=== PATIENT | male | born 1980 ===

== ENCOUNTER 2018-03-22 22:45 | Emergency (ER) | payer SELFPAY ==
[2018-03-22] MEDS ORDERED: Morphine 4 MG/ML VIAL IVP STA (23:44)
[2018-03-22] MEDS ORDERED: Sodium Chloride 0.9% 1,000 ML IV STA ×2 (23:44)
[2018-03-23] MEDS ORDERED: Morphine 4 MG/ML VIAL ONE (00:03)
[2018-03-23 00:11] LABS: BASO % 0.4 % (0.0-2.0); EOS # 0.2 K/uL (0.0-0.7); EOS % 2.8 % (0.0-4.0); HEMOGLOBIN 15.5 g/dL (12.0-18.0); LYMPH # 1.1 K/uL (1.0-4.3); LYMPH % 13.1 % (20.0-40.0); MEAN CELL VOLUME 91.8 fl (80.0-94.0); MEAN CORPUSCULAR HEMOGLOBIN 31.6 pg (27.0-31.0); MEAN CORPUSCULAR HGB CONC 34.4 g/dL (33.0-37.0); MEAN PLATELET VOLUME 8.7 fl (7.2-11.7); MONO # 0.8 K/uL (0.0-0.8); MONO % 8.6 % (0.0-10.0); NEUT # 6.5 K/uL (1.8-7.0); NEUT % 75.1 % (50.0-75.0); RBC 4.89 Mil/uL (4.40-5.90); RED CELL DISTRIBUTION WIDTH 12.4 % (11.5-14.5); WHITE BLOOD COUNT 8.7 K/uL (4.8-10.8)
[2018-03-23 00:11] LABS: VENOUS BLOOD GAS BASE EXCESS 0.8 mmol/L (0.0-2.0); VENOUS BLOOD GAS PCO2 39 mmHg (40-60); VENOUS BLOOD GAS PO2 46 mm/Hg (30-55); VENOUS BLOOD PH 7.42 (7.32-7.43)
--- NOTE | 2018-03-23 00:15 | ED PDOC ---
HPI: Abdomen Time Seen by Provider: 03/22/18 22:55 Chief Complaint (Nursing): Abdominal Pain Chief Complaint (Provider): abdominal pain History Per: Patient History/Exam Limitations: no limitations Onset/Duration Of Symptoms: Days (x1) Location Of Pain/Discomfort: Other (lower) Associated Symptoms: Nausea. denies: Vomiting, Urinary Symptoms Additional Complaint(s): Neri Reese is a 37 year old male, with no significant past medical history, who presents to the emergency department complaining of a worsening abdominal pain onset for x1 day. Patient states pain is generalized and associated with nausea and decrease in appetite today. Patient reports pain has since focused to the lower abdomen and worst on the right side. He also reports feeling febrile and weak but did not measure his temperature. He denies any vomiting, diarrhea, rash, testicular swelling, penile discharge or other medical complaints. PMD: None provided. Past Medical History Reviewed: Historical Data, Nursing Documentation, Vital Signs Vital Signs: Last Vital Signs Temp 98.5 F 03/22/18 22:51 Pulse 80 03/22/18 22:51 Resp 18 03/22/18 22:51 BP 138/78 03/22/18 22:51 Pulse Ox 98 03/22/18 22:51 - Medical History PMH: No Chronic Diseases - Surgical History Surgical History: No Surg Hx - Family History Family History: States: Unknown Family Hx - Social History Current smoker - smoking cessation education provided: No Alcohol: None Drugs: Denies - Allergies Allergies/Adverse Reactions: Allergies Allergy/AdvReac Type Severity Reaction Status Date / Time No Known Allergies Allergy Verified 03/22/18 22:52 Review of Systems ROS Statement: Except As Marked, All Systems Reviewed And Found Negative Constitutional: Positive for: Fever (subjective), Weakness Gastrointestinal: Positive for: Nausea, Abdominal Pain. Negative for: Vomiting, Diarrhea Genitourinary Male: Negative for: Dysuria, Penile Discharge, Scrotal Pain (swelling) Skin: Negative for: Rash Physical Exam - Reviewed Nursing Documentation Reviewed: Yes Vital Signs Reviewed: Yes - Physical Exam Appears: Positive for: Uncomfortable Head Exam: Positive for: ATRAUMATIC, NORMAL INSPECTION, NORMOCEPHALIC Skin: Positive for: Normal Color, Warm, Diaphoresis Eye Exam: Positive for: Normal appearance, EOMI, PERRL Neck: Positive for: Normal, Painless ROM Cardiovascular/Chest: Positive for: Regular Rate, Rhythm. Negative for: Murmur Respiratory: Positive for: Normal Breath Sounds. Negative for: Respiratory Distress Gastrointestinal/Abdominal: Positive for: Soft, Tenderness (to palpation of LLQ), Rebound (RLQ tenderness) Back: Positive for: Normal Inspection. Negative for: L CVA Tenderness, R CVA Tenderness, Vertebral Tenderness Extremity: Positive for: Normal ROM (upper and lower extremities). Negative for: Deformity, Swelling Neurologic/Psych: Positive for: Alert, Oriented - Laboratory Results Result Diagrams: 03/22/18 23:40 03/22/18 23:40 - ECG O2 Sat by Pulse Oximetry: 98 (RA) Pulse Ox Interpretation: Normal Medical Decision Making Medical Decision Making: Time: 22:55 Initial Impression: work up for abdominal pain consistent with appendicitis. Labs, IV fluids, Tylenol for fever, morphine for pain, CT of abd/pelvis with IV contrast. Initial Plan: --Type and screen --VBG Shock Panel --Abd & Pelvis IV Contrast [CT] --EKG --CMP --Lipase --CBC w/ differential --PTT --PT --Chest portable --Morphine 4 mg IVP --Sodium Chloride 1,000 ml IV 1,000 mls/hr --Sodium Chloride 1,000 ml IV 1,000 mls/hr --Tylenol 325 mg tab 650 mg PO --Influenza A B --Urinalysis --Reevaluation 00:00 Patient to be signed out to Dr. Gibson pending labs and CT. ----- Scribe Attestation: Documented by Juan R Courtney, acting as a scribe for Phuong Amador MD. Provider Scribe Attestation: All medical record entries made by the Scribe were at my direction and personally dictated by me. I have reviewed the chart and agree that the record accurately reflects my personal performance of the history, physical exam, medical decision making, and the department course for this patient. I have also personally directed, reviewed, and agree with the discharge instructions and disposition. Disposition - Disposition Disposition: Transfer of Care Disposition Time: 00:00 Condition: STABLE Forms: [email or web address] ([place]) Patient Signed Over To: Fausto Gibson
[2018-03-23 00:16] LABS: ALB/GLOB RATIO 1.1 (1.0-2.1); ALBUMIN 4.1 g/dL (3.5-5.0); ALT/SGPT 75 U/L (21-72); AST/SGOT 44 U/L (17-59); BLOOD UREA NITROGEN 14 mg/dl (9-20); CALCIUM 9.2 mg/dL (8.4-10.2); GFR NON-AFRICAN AMERICAN > 60; LIPASE 50 U/L (23-300)
[2018-03-23] MEDS ORDERED: Sodium Chloride 0.9% 50 ML IV ONE (00:18)
[2018-03-23] MEDS ORDERED: Iohexol 300 100 ML IJ ONE (00:18)
[2018-03-23 00:24] LABS: INR 1.1
[2018-03-23 00:26] LABS: PARTIAL THROMBOPLASTIN TIME 33.7 Seconds (25.6-37.1)
--- NOTE | 2018-03-23 00:26 | ED PDOC ---
- Laboratory Results Result Diagrams: 03/22/18 23:40 03/22/18 23:40 - ECG O2 Sat by Pulse Oximetry: 98 (RA) Medical Decision Making Medical Decision Makin:00 -Patient endorsed to provider by Dr. Amador, pending CT and labs. 01:48 Abdomen/Pelvis CT COMMENTS: Fluid filled bowels. The liver is of uniform attenuation without mass or defect. There is no intra or extrahepatic biliary ductal dilatation. The spleen is normal. The gallbladder is within normal limits. The pancreas is of normal contour and attenuation characteristics. There is no evidence of adrenal mass. Both kidneys demonstrate prompt and equal nephrograms. The kidneys are normal in size, shape and configuration. There is no evidence of renal or ureteral mass. No renal or ureteral calculi are identified. There is no hydroureter or hydronephrosis. No evidence for appendicitis. There is no bowel wall thickening. No evidence for small or large bowel obstruction. There is no evidence of abdominal ascites or lymphadenopathy. There is no evidence of intrinsic or extrinsic bladder mass. There is no pelvic ascites or lymphadenopathy. Images of the lung bases show no evidence of pleural or parenchymal mass. There are no pleural effusions. The bony structures are free of lytic or blastic lesions. IMPRESSION: Fluid filled bowels, nonspecific finding. No evidence of acute abdominal or pelvic pathology. 03:13 -Patient reports improvement of symptoms and is medically stable for discharge. Diagnosis of abdominal pain Scribe Attestation: Documented by Juan R Courtney, acting as a scribe for Fausto Gibson MD. Provider Scribe Attestation: All medical record entries made by the Scribe were at my direction and personally dictated by me. I have reviewed the chart and agree that the record accurately reflects my personal performance of the history, physical exam, medical decision making, and the department course for this patient. I have also personally directed, reviewed, and agree with the discharge instructions and disposition. Disposition - Clinical Impression Clinical Impression: Abdominal pain - POA Present On Arrival: None - Disposition Disposition: Routine/Home Disposition Time: 03:13 Condition: STABLE Prescriptions: Dicyclomine [Bentyl] 20 mg PO Q12 PRN #20 tab PRN Reason: abdominal pain Ondansetron ODT [Zofran ODT] 4 mg PO Q6 PRN #8 odt PRN Reason: Nausea/Vomiting Instructions: Acute Abdomen (Belly Pain) Forms: [employer] [facility] ([place]an)
[2018-03-23 01:27] LABS: URINE BACTERIA RARE (<OCC); URINE BILIRUBIN NEGATIVE (NEGATIVE); URINE BLOOD NEGATIVE (NEGATIVE); URINE CLARITY CLEAR (Clear); URINE COLOR STRAW (YELLOW); URINE GLUCOSE (UA) NEG (Normal); URINE LEUKOCYTE ESTERASE NEG Leu/uL (Negative); URINE PROTEIN NEGATIVE (NEGATIVE); URINE UROBILINOGEN 0.2-1.0 mg/dL (0.2-1.0)
[2018-03-23 03:31] VITALS: BP 109/54; PULSE 77; RESP 12; TEMP 98.7
--- NOTE | 2018-03-23 10:57 | CARD ---
APPROVED REPORT Date of service: 03/23/2018 EKG Measurement Heart [id number] ID [id number] <Conclusion> Normal sinus rhythm Normal Electrocardiogram
--- NOTE | 2018-03-23 11:52 | CT ---
Date of service: 03/23/2018 PROCEDURE: CT Abdomen and Pelvis with contrast HISTORY: Rule out appendicitis COMPARISON: None available TECHNIQUE: Contrast dose: 90 mL Omnipaque 300 Radiation dose: Total exam DLP = 412.82 mGy-cm. This CT exam was performed using one or more of the following dose reduction techniques: Automated exposure control, adjustment of the mA and/or kV according to patient size, and/or use of iterative reconstruction technique. FINDINGS: LOWER THORAX: Unremarkable. LIVER: Diffusely diminished attenuation of the liver consistent with fatty infiltration. There is mild focal fatty sparing adjacent to the gallbladder fossa. There is no hepatic mass. The contour is smooth. There is no biliary ductal dilatation. GALLBLADDER AND BILE DUCTS: Unremarkable. PANCREAS: Unremarkable. No gross lesion or ductal dilatation. SPLEEN: Unremarkable. ADRENALS: Unremarkable. No mass. KIDNEYS AND URETERS: Unremarkable. No hydronephrosis. No solid mass. VASCULATURE: Unremarkable. No aortic aneurysm. No aortic atherosclerotic calcification or mural plaque present. BOWEL: No bowel obstruction. There is circumferential mural thickening of multiple loops of jejunum in the left abdomen consistent with a nonspecific enteritis. No other abnormal bowel loops are identified. There are scattered colonic diverticula noted without evidence of diverticulitis. APPENDIX: Not positively identified. No secondary findings to suggest acute appendicitis. PERITONEUM: Unremarkable. No free fluid. No free air. LYMPH NODES: No retroperitoneal or pelvic lymphadenopathy. There are innumerable shotty subcentimeter lymph nodes within the small bowel mesenteric. This is a nonspecific finding and may be related to the nonspecific enteritis described above. BLADDER: Unremarkable. REPRODUCTIVE: Normal prostate BONES: No acute fracture. OTHER FINDINGS: None. IMPRESSION: Nonspecific enteritis. Small bowel mesenteric lymphadenopathy of uncertain significance, possibly reactive associated with the nonspecific enteritis noted above. Diffuse fatty infiltration of the liver. No other abnormality identified. The preliminary findings for this examination were reported by [facility] at 1:48 a.m. on 03/23/2018. There is discordance of this report with the preliminary findings. The nonspecific enteritis and small bowel mesenteric lymphadenopathy was not described in the preliminary report of this examination.
--- NOTE | 2018-03-23 12:18 | RAD ---
Date of service: 03/22/2018 HISTORY: possible admission COMPARISON: No prior. FINDINGS: LUNGS: No active pulmonary disease. PLEURA: No significant pleural effusion identified, no pneumothorax apparent. CARDIOVASCULAR: No atherosclerotic calcification present Normal. OSSEOUS STRUCTURES: No significant abnormalities. VISUALIZED UPPER ABDOMEN: Normal. OTHER FINDINGS: None. IMPRESSION: No active disease.
[2018-03-23 21:40] VITALS: O2SAT 98
== END 2018-03-23 03:39 | disposition home or self-care (01) ==
LOC: H.ER 22:45
DX: R10.9 Unspecified abdominal pain (principal)
CPT/HCPCS: 71045; 74177; 80053; 81003; 82803; 83690; 85025; 85610; 85730; 86850; 86900; 87804; 93005; 96361; 96374; 99283; J2270; J7030; Q9967

== ENCOUNTER 2018-03-23 22:15 | Emergency (ER) | payer SELFPAY ==
[2018-03-23] MEDS ORDERED: Sodium Chloride 0.9% 1,000 ML IV STA (22:55)
[2018-03-23 23:51] LABS: BASO % 0.6 % (0.0-2.0); EOS # 0.3 K/uL (0.0-0.7); EOS % 5.1 % (0.0-4.0); LYMPH # 1.2 K/uL (1.0-4.3); MEAN CELL VOLUME 93.9 fl (80.0-94.0); MEAN CORPUSCULAR HEMOGLOBIN 32.2 pg (27.0-31.0); MEAN CORPUSCULAR HGB CONC 34.3 g/dL (33.0-37.0); MEAN PLATELET VOLUME 8.8 fl (7.2-11.7); MONO # 0.7 K/uL (0.0-0.8); MONO % 12.5 % (0.0-10.0); NEUT # 3.2 K/uL (1.8-7.0); NEUT % 59.8 % (50.0-75.0); NRBC % 0.1 % (0.0-0.0); RBC 4.65 Mil/uL (4.40-5.90); RED CELL DISTRIBUTION WIDTH 12.3 % (11.5-14.5); WHITE BLOOD COUNT 5.3 K/uL (4.8-10.8)
[2018-03-23 23:55] LABS: ALB/GLOB RATIO 1.2 (1.0-2.1); ALBUMIN 4.4 g/dL (3.5-5.0); ALT/SGPT 76 U/L (21-72); AST/SGOT 45 U/L (17-59); BLOOD UREA NITROGEN 14 mg/dl (9-20); CALCIUM 9.6 mg/dL (8.4-10.2); GFR NON-AFRICAN AMERICAN > 60; LIPASE 66 U/L (23-300)
--- NOTE | 2018-03-24 00:20 | ED PDOC ---
HPI: Abdomen Time Seen by Provider: 03/23/18 22:54 Chief Complaint (Nursing): Abdominal Pain Chief Complaint (Provider): Abdominal Pain History Per: Patient History/Exam Limitations: no limitations Additional Complaint(s): 37 y/o male with no significant past medical history presents to the ED complaining of abdominal pain. Patient reports that he was diagnosed with nonspecific abdominal pain earlier today on 03/23/18 and was discharged; he had a complete workup which revealed no acute findings. Patient reports that he was later called by ED PA doing call backs and informed him that he had enteritis which was not in the initial CT report. Patient understood that he was supposed to come back if he had abdominal pain but as per PA he was actually just told dietary advice. Past Medical History Reviewed: Historical Data, Nursing Documentation, Vital Signs Vital Signs: Last Vital Signs Temp 98.8 F 03/23/18 22:34 Pulse 72 03/23/18 22:34 Resp 18 03/23/18 22:34 BP 128/78 03/23/18 22:34 Pulse Ox 100 03/23/18 22:34 - Surgical History Surgical History: No Surg Hx - Family History Family History: States: Unknown Family Hx - Home Medications Home Medications: Ambulatory Orders Medication Instructions Recorded Dicyclomine [Bentyl] 20 mg PO Q12 PRN #20 tab 03/23/18 Ondansetron ODT [Zofran ODT] 4 mg PO Q6 PRN #8 odt 03/23/18 - Allergies Allergies/Adverse Reactions: Allergies Allergy/AdvReac Type Severity Reaction Status Date / Time No Known Allergies Allergy Verified 03/22/18 22:52 Review of Systems ROS Statement: Except As Marked, All Systems Reviewed And Found Negative Gastrointestinal: Positive for: Abdominal Pain Physical Exam - Reviewed Nursing Documentation Reviewed: Yes Vital Signs Reviewed: Yes - Physical Exam Appears: Positive for: Non-toxic, No Acute Distress Head Exam: Positive for: ATRAUMATIC, NORMOCEPHALIC Skin: Positive for: Normal Color, Warm, Dry Eye Exam: Positive for: Normal appearance, EOMI, PERRL Neck: Positive for: Normal, Painless ROM, Supple Cardiovascular/Chest: Positive for: Regular Rate, Rhythm. Negative for: Murmur Respiratory: Positive for: Normal Breath Sounds. Negative for: Respiratory Distress Gastrointestinal/Abdominal: Positive for: Tenderness (mild LLQ) Extremity: Positive for: Normal ROM. Negative for: Pedal Edema, Deformity Neurologic/Psych: Positive for: Alert, Oriented. Negative for: Motor/Sensory Deficits - Laboratory Results Result Diagrams: 03/23/18 23:30 03/23/18 23:30 - ECG O2 Sat by Pulse Oximetry: 100 (RA) Pulse Ox Interpretation: Normal Medical Decision Making Medical Decision Making: Time: 22:55 Initial Impression: 37 y/o male with abdominal pain in setting of established enteritis on CT Initial Plan: * CMP * Lipase * ED urine * CBC w/ diff * IV Fluids * UA 00:30 Labs reviewed no clinically significant abnormalities. Patient is stable for discharge home. Provider reinforced benign findings of labs and CT to patient. Diagnosis is gastroenteritis. Scribe Attestation: Documented by Deyvi Harris acting as a scribe for Fausto Gibson MD. Provider Scribe Attestation: All medical record entries made by the Scribe were at my direction and personally dictated by me. I have reviewed the chart and agree that the record accurately reflects my personal performance of the history, physical exam, medical decision making, and the department course for this patient. I have also personally directed, reviewed, and agree with the discharge instructions and disposition. Disposition - Clinical Impression Clinical Impression: Gastroenteritis - Patient ED Disposition Is Patient to be Admitted: No - Disposition Disposition: Routine/Home Disposition Time: 00:30 Condition: STABLE Additional Instructions: RAUDEL BERTRAND, thank you for letting us take care of you today. Your provider was Fausto Gibson MD and you were treated for ABD PAIN. The emergency medical care you received today was directed at your acute symptoms. If you were prescribed any medication, please fill it and take as directed. It may take several days for your symptoms to resolve. Return to the Emergency Department if your symptoms worsen, do not improve, or if you have any other problems. Please contact your doctor or call one of the physicians/clinics you have been referred to that are listed on the Patient Visit Information form that is included in your discharge packet. Bring any paperwork you were given at discharge with you along with any medications you are taking to your follow up visit. Our treatment cannot replace ongoing medical care by a primary care provider outside of the emergency department. Thank you for allowing the [facility] team to be part of your care today. If you had an X-Ray or CT scan: A Radiologist will review the ED reading if any change in treatment is needed we will contact you. If you had a blood, urine, or wound culture: It will take several days for the results, if any change in treatment is needed we will contact you. If you had an STI test: It will take 48 hours for the results. Please call after 1 week if you have not heard back. Instructions: Gastroenteritis (ED) Forms: [employer] ([place]zeri) Print Language: KAZAKH
[2018-03-24 01:16] VITALS: BP 124/66; PULSE 77; RESP 16; TEMP 97.9
[2018-03-24 01:36] LABS: SQUAMOUS EPITHIAL < 1 /hpf (0-5); URINE BILIRUBIN NEGATIVE (NEGATIVE); URINE BLOOD NEGATIVE (NEGATIVE); URINE CLARITY CLEAR (Clear); URINE COLOR YELLOW (YELLOW); URINE GLUCOSE (UA) NEG (Normal); URINE LEUKOCYTE ESTERASE NEG Leu/uL (Negative); URINE PROTEIN NEGATIVE (NEGATIVE); URINE UROBILINOGEN 0.2-1.0 mg/dL (0.2-1.0)
[2018-03-24 06:53] VITALS: O2SAT 100
== END 2018-03-24 00:35 | disposition home or self-care (01) ==
LOC: H.ER 22:15
DX: K52.9 Noninfective gastroenteritis and colitis, unspecified (principal)
CPT/HCPCS: 80053; 81003; 83690; 85025; 99283; J7030

== ENCOUNTER 2018-04-10 15:08 | Emergency (ER) | payer OTHER ==
[2018-04-10] MEDS ORDERED: Sodium Chloride 0.9% 1,000 ML IV STA (15:52)
--- NOTE | 2018-04-10 15:55 | ED PDOC ---
HPI: Abdomen Time Seen by Provider: 04/10/18 15:41 Chief Complaint (Nursing): Abdominal Pain Chief Complaint (Provider): Abdominal Pain History Per: Patient History/Exam Limitations: no limitations Onset/Duration Of Symptoms: Hrs (x12) Current Symptoms Are (Timing): Still Present Location Of Pain/Discomfort: Epigastric Associated Symptoms: Chills, Nausea. denies: Fever, Vomiting, Diarrhea Additional Complaint(s): 37 y/o male with no significant PMHx presents to the ED for evaluation of abdominal pain, onset 12 hours ago. Patient states pain is located in the epigastric area and is associated with nausea and chills. Patient reports pain is constant and has been gradually worsening. Patient states pain worsens every time he tries to eat something. In addition, patient reports of drinking alcohol yesterday. Patient states he had a couple of beers. Otherwise, patient denies vomiting, diarrhea and fever. PMD: No Provider Past Medical History Reviewed: Historical Data, Nursing Documentation, Vital Signs Vital Signs: Last Vital Signs Temp 100.2 F H 04/10/18 15:35 Pulse 97 H 04/10/18 15:35 Resp 18 04/10/18 15:35 BP 128/85 04/10/18 15:35 Pulse Ox 100 04/10/18 15:35 - Medical History PMH: No Chronic Diseases - Surgical History Surgical History: Appendectomy, Hernia Repair - Family History Family History: States: Unknown Family Hx - Social History Alcohol: Social - Home Medications Home Medications: Ambulatory Orders Medication Instructions Recorded Dicyclomine [Bentyl] 20 mg PO Q12 PRN #20 tab 03/23/18 Ondansetron ODT [Zofran ODT] 4 mg PO Q6 PRN #8 odt 03/23/18 Famotidine [Pepcid] 20 mg PO DAILY #14 tab 04/10/18 - Allergies Allergies/Adverse Reactions: Allergies Allergy/AdvReac Type Severity Reaction Status Date / Time No Known Allergies Allergy Verified 04/10/18 15:35 Review of Systems ROS Statement: Except As Marked, All Systems Reviewed And Found Negative Constitutional: Positive for: Chills. Negative for: Fever Gastrointestinal: Positive for: Nausea, Abdominal Pain (epigastric pain). Negative for: Vomiting, Diarrhea Physical Exam - Reviewed Nursing Documentation Reviewed: Yes Vital Signs Reviewed: Yes - Physical Exam Appears: Positive for: In Acute Distress Head Exam: Positive for: ATRAUMATIC, NORMOCEPHALIC Skin: Positive for: Normal Color, Warm, Dry Eye Exam: Positive for: Normal appearance, EOMI, PERRL Neck: Positive for: Normal, Painless ROM Cardiovascular/Chest: Negative for: Bradycardia, Tachycardia Respiratory: Negative for: Accessory Muscle Use, Respiratory Distress Gastrointestinal/Abdominal: Positive for: Tenderness (epigastric tenderness) Back: Positive for: Normal Inspection. Negative for: L CVA Tenderness, R CVA Tenderness, Vertebral Tenderness Extremity: Positive for: Normal ROM. Negative for: Pedal Edema, Deformity Neurologic/Psych: Positive for: Alert, Oriented (x3). Negative for: Motor/Sensory Deficits - Laboratory Results Result Diagrams: 04/10/18 16:13 04/10/18 16:13 - ECG O2 Sat by Pulse Oximetry: 100 (RA) Pulse Ox Interpretation: Normal - Progress Re-evaluation Time: 19:01 Condition: Re-examined, Improved Medical Decision Making Medical Decision Making: Time: 1552 Impression: Abdominal Pain Differentials include but not limited to acute pancreatitis, gastritis and billiary disease Plan: -- VBG -- CT Abd/Pelvis IV Contrast ONLY -- CMP -- Lipase -- NPO Diet -- ED Urine Dipstick -- CBC iwth Differentials -- Morphine 2 mg IVP -- Sodium Chloride IV 1000 mls/hr -- Pepcid 20 mg IVP -- Zofran Inj 4 mg IV -- Blood Culture Time: 1841 CT RESULTS FINDINGS: LOWER THORAX: No focal consolidation however there appears to be some mild passive/dependent type atelectasis both posterior sulci. Small approximately 6 mm semi lunar shaped subpleural based nodule left posterior sulcus may represent postinflammatory sequela. Follow-up nonemergent CT scan of the chest could be performed for further evaluation of the remaining lung paredes. No evidence of effusions or basilar pneumothorax. Heart size within range of normal. No significant pericardial effusion. There is a small hiatal hernia. LIVER: Liver is mildly enlarged measuring over 19 cm in CC dimension. No obvious hepatic masses or collections. Moderate fatty hepatic infiltration. Portal and splenic veins are opacified. GALLBLADDER AND BILE DUCTS: The gallbladder is physiologically distended. No evidence of intraluminal gallbladder calculi. PANCREAS: Unremarkable. No gross lesion or ductal dilatation. SPLEEN: Unremarkable. ADRENALS: Unremarkable. No mass. KIDNEYS AND URETERS: Unremarkable. No hydronephrosis. No solid mass. VASCULATURE: Unremarkable. No aortic aneurysm. No aortic atherosclerotic calcification or mural plaque present. BOWEL: Evaluation of the bowel is limited due to the lack of oral contrast material. The stomach is incompletely distended which likely accounts for thick-walled appearance however on as the possibility of a gastritis given the patient's history of epigastric pain not completely excluded. Clinical correlation recommended. Interval improvement previously noted changes of nonspecific enteritis. There is a small very thin linear hyperdense focus within a loop of locally dilated proximal small bowel left upper/mid abdomen that measures 7.3 mm in length and approximately 1.7 mm in thickness. This focus is of uncertain etiology though possibility of small foreign body not excluded. No evidence of acute mechanical small bowel obstruction. Stool and air seen throughout the large bowel. There are few scattered colonic diverticula however no radiographic evidence of acute diverticulitis. APPENDIX: The appendix is not seen with complete certainty on this study however no obvious inflammatory changes right lower quadrant of the abdomen. PERITONEUM: Unremarkable. No free fluid. No free air. LYMPH NODES: Interval decrease in size previously noted multiple mesenteric lymph nodes. The the the all BLADDER: Urinary bladder is appears incompletely distended which may in part account for thick-walled appearance. Muscular hypertrophy may contribute. Correlation with urinalysis to exclude the possibility of a cystitis. REPRODUCTIVE: The prostate gland measures approximately 4.1 cm in transverse dimension. BONES: No acute fracture. OTHER FINDINGS: None. IMPRESSION: Mild hepatomegaly with fatty infiltration. There is a small very thin linear hyperdense focus within a loop of locally dilated proximal small bowel left upper/mid abdomen that measures 7.3 mm in length and approximately 1.7 mm in thickness. This focus is of uncertain etiology though possibility of small foreign body not excluded. No evidence of acute mechanical small bowel obstruction. Stool and air seen throughout the large bowel. There are few scattered colonic diverticula however no radiographic evidence of acute diverticulitis. C see above discussion for additional details findings and recommendations. Scribe Attestation: Documented by Loren Mcclure, acting as a scribe for Larisa Hollis MD. Provider Scribe Attestation: All medical record entries made by the Scribe were at my direction and personally dictated by me. I have reviewed the chart and agree that the record accurately reflects my personal performance of the history, physical exam, medical decision making, and the department course for this patient. I have also personally directed, reviewed, and agree with the discharge instructions and disposition. Disposition - Clinical Impression Clinical Impression: Fatty liver, Gastritis, Abdominal pain - Patient ED Disposition Is Patient to be Admitted: No Doctor Will See Patient In The: Office Counseled Patient/Family Regarding: Studies Performed, Diagnosis - Disposition Referrals: [facility] [Outside] Disposition: Routine/Home Disposition Time: 19:01 Condition: GOOD Additional Instructions: RAUDEL BERTRAND, thank you for letting us take care of you today. Your provider was Larisa Hollis MD and you were treated for ABD PAIN. The emergency medical care you received today was directed at your acute symptoms. If you were prescribed any medication, please fill it and take as directed. It may take several days for your symptoms to resolve. Return to the Emergency Department if your symptoms worsen, do not improve, or if you have any other problems. Please contact your doctor or call one of the physicians/clinics you have been referred to that are listed on the Patient Visit Information form that is included in your discharge packet. Bring any paperwork you were given at discharge with you along with any medications you are taking to your follow up visit. Our treatment cannot replace ongoing medical care by a primary care provider outside of the emergency department. Thank you for allowing the [facility] team to be part of your care today. If you had an X-Ray or CT scan: A Radiologist will review the ED reading if any change in treatment is needed we will contact you. If you had a blood, urine, or wound culture: It will take several days for the results, if any change in treatment is needed we will contact you. If you had an STI test: It will take 48 hours for the results. Please call after 1 week if you have not heard back. Prescriptions: Famotidine [Pepcid] 20 mg PO DAILY #14 tab Instructions: Stomach Ache and Stomach Upset Forms: [employer] (Chinese) Print Language: KYRGYZ
[2018-04-10 16:16] LABS: BASO % 0.6 % (0.0-2.0); EOS # 0.2 K/uL (0.0-0.7); EOS % 3.1 % (0.0-4.0); HEMOGLOBIN 15.4 g/dL (12.0-18.0); LYMPH # 1.5 K/uL (1.0-4.3); MEAN CELL VOLUME 94.1 fl (80.0-94.0); MEAN CORPUSCULAR HEMOGLOBIN 31.8 pg (27.0-31.0); MEAN CORPUSCULAR HGB CONC 33.8 g/dL (33.0-37.0); MEAN PLATELET VOLUME 8.2 fl (7.2-11.7); MONO # 0.8 K/uL (0.0-0.8); MONO % 10.7 % (0.0-10.0); NEUT # 5.1 K/uL (1.8-7.0); NEUT % 66.6 % (50.0-75.0); NRBC % 0.1 % (0.0-0.0); RBC 4.85 Mil/uL (4.40-5.90); RED CELL DISTRIBUTION WIDTH 12.2 % (11.5-14.5); WHITE BLOOD COUNT 7.6 K/uL (4.8-10.8)
[2018-04-10 16:20] LABS: VENOUS BLOOD GAS BASE EXCESS 2.4 mmol/L (0.0-2.0); VENOUS BLOOD GAS PCO2 42 mmHg (40-60); VENOUS BLOOD GAS PO2 35 mm/Hg (30-55); VENOUS BLOOD PH 7.42 (7.32-7.43)
[2018-04-10 17:06] LABS: ALB/GLOB RATIO 1.2 (1.0-2.1); ALBUMIN 4.6 g/dL (3.5-5.0); ALT/SGPT 52 U/L (21-72); AST/SGOT 31 U/L (17-59); BLOOD UREA NITROGEN 10 mg/dl (9-20); CALCIUM 9.4 mg/dL (8.4-10.2); GFR NON-AFRICAN AMERICAN > 60; LIPASE 56 U/L (23-300)
[2018-04-10] MEDS ORDERED: Iohexol 300 100 ML IJ ONE (17:10)
[2018-04-10] MEDS ORDERED: Sodium Chloride 0.9% 50 ML IV ONE (17:11)
--- NOTE | 2018-04-10 18:50 | CT ---
Date of service: 04/10/2018 PROCEDURE: CT Abdomen and Pelvis with contrast HISTORY: Epigastric pain COMPARISON: Comparison made with prior study dated 03/23/2018. TECHNIQUE: Contiguous helical/transaxial sections of the abdomen pelvis performed following the intravenous injection of approximately 95 cc Omnipaque 300 contrast material. Additional 2D sagittal and coronal reformats generated. Radiation dose: Total exam DLP = 510.6 mGy-cm. This CT exam was performed using one or more of the following dose reduction techniques: Automated exposure control, adjustment of the mA and/or kV according to patient size, and/or use of iterative reconstruction technique. FINDINGS: LOWER THORAX: No focal consolidation however there appears to be some mild passive/dependent type atelectasis both posterior sulci. Small approximately 6 mm semi lunar shaped subpleural based nodule left posterior sulcus may represent postinflammatory sequela. Follow-up nonemergent CT scan of the chest could be performed for further evaluation of the remaining lung paredes. No evidence of effusions or basilar pneumothorax. Heart size within range of normal. No significant pericardial effusion. There is a small hiatal hernia. LIVER: Liver is mildly enlarged measuring over 19 cm in CC dimension. No obvious hepatic masses or collections. Moderate fatty hepatic infiltration. Portal and splenic veins are opacified. GALLBLADDER AND BILE DUCTS: The gallbladder is physiologically distended. No evidence of intraluminal gallbladder calculi. PANCREAS: Unremarkable. No gross lesion or ductal dilatation. SPLEEN: Unremarkable. ADRENALS: Unremarkable. No mass. KIDNEYS AND URETERS: Unremarkable. No hydronephrosis. No solid mass. VASCULATURE: Unremarkable. No aortic aneurysm. No aortic atherosclerotic calcification or mural plaque present. BOWEL: Evaluation of the bowel is limited due to the lack of oral contrast material. The stomach is incompletely distended which likely accounts for thick-walled appearance however on as the possibility of a gastritis given the patient's history of epigastric pain not completely excluded. Clinical correlation recommended. Interval improvement previously noted changes of nonspecific enteritis. There is a small very thin linear hyperdense focus within a loop of locally dilated proximal small bowel left upper/mid abdomen that measures 7.3 mm in length and approximately 1.7 mm in thickness. This focus is of uncertain etiology though possibility of small foreign body not excluded. No evidence of acute mechanical small bowel obstruction. Stool and air seen throughout the large bowel. There are few scattered colonic diverticula however no radiographic evidence of acute diverticulitis. APPENDIX: The appendix is not seen with complete certainty on this study however no obvious inflammatory changes right lower quadrant of the abdomen. PERITONEUM: Unremarkable. No free fluid. No free air. LYMPH NODES: Interval decrease in size previously noted multiple mesenteric lymph nodes. The the the all BLADDER: Urinary bladder is appears incompletely distended which may in part account for thick-walled appearance. Muscular hypertrophy may contribute. Correlation with urinalysis to exclude the possibility of a cystitis. REPRODUCTIVE: The prostate gland measures approximately 4.1 cm in transverse dimension. BONES: No acute fracture. OTHER FINDINGS: None. IMPRESSION: Mild hepatomegaly with fatty infiltration. There is a small very thin linear hyperdense focus within a loop of locally dilated proximal small bowel left upper/mid abdomen that measures 7.3 mm in length and approximately 1.7 mm in thickness. This focus is of uncertain etiology though possibility of small foreign body not excluded. No evidence of acute mechanical small bowel obstruction. Stool and air seen throughout the large bowel. There are few scattered colonic diverticula however no radiographic evidence of acute diverticulitis. C see above discussion for additional details findings and recommendations.
[2018-04-10 19:12] VITALS: BP 111/58; PULSE 85; RESP 15; TEMP 99.4; O2SAT 98
== END 2018-04-10 19:11 | disposition home or self-care (01) ==
LOC: H.ER 15:08
DX: K76.0 Fatty (change of) liver, not elsewhere classified (principal); K29.70 Gastritis, unspecified, without bleeding; R10.13 Epigastric pain
CPT/HCPCS: 74177; 80053; 82803; 83690; 85025; 87040; 96361; 96374; 96375; 99283; J2270; J2405; J7030; Q9967